=== PATIENT | male | born 1960 | race Caucasian/White ===

== ENCOUNTER → 2017-03-09 | Outpatient (CLI) | payer BC ==
--- NOTE | 2017-03-09 10:44 | DIAGNOSTIC IMAGING REPORT ---
L-SPINE MIN 4 VIEWS ROUTINE HISTORY: 56 years-old Male Back pain with radiation COMPARISON: None available TECHNIQUE: 5 radiographic views of the lumbar spine FINDINGS: 5 nonrib-bearing lumbar type vertebral segments are present. There is no evidence of spondylolysis or spondylolisthesis. No compression deformity. Alignment is satisfactory. Intervertebral disc space narrowing is seen at L5-S1 and L2-L3. There is at moderate facet arthrosis of the lower lumbar levels. Multilevel endplate spurring is seen. Soft tissues are unremarkable. IMPRESSION: 1. No acute fracture or dislocation. 2. Intervertebral disc space narrowing seen most prominently at L2-L3 and L5-S1. Facet arthrosis and endplate spurring is seen at several levels. The above report was generated using voice recognition software. It may contain grammatical, syntax or spelling errors. Electronically signed by: Zak Patricio M.D. 03/09/2017 10:43 AM Dictated Date/Time: 03/09/2017 10:41 AM
[2017-03-09 17:53] LABS: ALT/SGPT 17 U/L (12-78); BLOOD UREA NITROGEN 8 mg/dl (7-18); BUN/CREATININE RATIO 9.6 (10-20); CALCIUM 9.3 mg/dl (8.5-10.1); CARBON DIOXIDE 30 mmol/L (21-32); CHLORIDE 108 mmol/L (98-107); CREATININE 0.88 mg/dl (0.60-1.40); GLUCOSE 108 mg/dl (70-99); POTASSIUM 3.6 mmol/L (3.5-5.1); SODIUM 143 mmol/L (136-145)
[2017-03-09 17:56] LABS: ALB/GLOB RATIO 1.3 (0.9-2); ALKALINE PHOSPHATASE 75 U/L (45-117); AST/SGOT 9 U/L (15-37)
== END | disposition home or self-care (01) ==
LOC: C.RADPV 09:52
PROVIDERS: ATTEND Family Medicine
DX: M48.06 Spinal stenosis, lumbar region (principal); M47.816 Spondylosis without myelopathy or radiculopathy, lumbar region

== ENCOUNTER → 2017-04-12 | Outpatient (CLI) | payer BC ==
--- NOTE | 2017-04-12 09:55 | DIAGNOSTIC IMAGING REPORT ---
RIGHT KNEE 1 OR 2 VIEWS ROUTINE HISTORY: 56 years-old Male chronic right knee pain with history of remote trauma. COMPARISON: None available TECHNIQUE: Frontal and lateral views of the right knee. FINDINGS: There is a 2.0 x 0.6 cm bone fragment posterior to the joint space with indistinct cortical margin along its caudal border. No definite donor site is seen. There also appears to be mild posterior soft tissue swelling. There is a small joint effusion. Minimal patellofemoral degenerative changes are noted. IMPRESSION: 2.0 cm bone fragment adjacent to the posterior joint space with associated soft tissue swelling is suspicious for an avulsion bone fragment or sequela of age-indeterminate injury. Correlate with point tenderness and patient history. A follow-up CT of the knee may also be beneficial if clinically indicated. The above report was generated using voice recognition software. It may contain grammatical, syntax or spelling errors. Electronically signed by: Zak Patricio M.D. 04/12/2017 9:54 AM Dictated Date/Time: 04/12/2017 9:51 AM
== END | disposition home or self-care (01) ==
LOC: C.RADPV 09:37
PROVIDERS: ATTEND Neuromusculoskeletal Medicine & OMM
DX: M25.561 Pain in right knee (principal); R93.7 Abnormal findings on diagnostic imaging of other parts of musculoskeletal system